=== PATIENT | female | born 1975 | race American Indian/Alaskan Native ===

== ENCOUNTER 2018-12-20 23:18 | Emergency (ER) | payer MEDICAID ==
[2018-12-21 00:58] VITALS: BP 152/101
[2018-12-21] MEDS ORDERED: BANOPHEN PO ONE (01:03)
--- NOTE | 2018-12-21 01:29 | XRay Report ---
PROCEDURE: XR CHEST ROUTINE 2V TECHNIQUE: PA and lateral views of the chest were submitted. HISTORY: KARI COMPARISONS: None FINDINGS: The heart size and mediastinum appear normal. The lungs are clear. Pleural fluid is not seen. Skeleta l structures do not show any acute changes. IMPRESSION: No acute cardiopulmonary process.. This document is electronically signed by Nikita Mayorga MD., December 21 2018 01:27:08 AM ET
[2018-12-21] MEDS ORDERED: PEPCID IV ONE (03:53)
[2018-12-21] MEDS ORDERED: BENADRYL IV ONE (03:53)
[2018-12-21] MEDS ORDERED: DECADRON IV ONE (03:53)
[2018-12-21] MEDS ORDERED: PROVENTIL IH ONE (03:53)
[2018-12-21] MEDS ORDERED: IBUPROFEN PO ONE (03:54)
--- NOTE | 2018-12-21 03:55 | Emergency Department Report ---
ED Peds Dyspnea HPI - General Chief Complaint: Dyspnea/Respdistress Stated Complaint: KARI Time Seen by Provider: 12/21/18 03:42 Source: patient Mode of arrival: Ambulatory Limitations: No Limitations - History of Present Illness Initial Comments: Please of 3-year-old female who presents for itchy throat allergic reaction patient advises that this is a chronic problem for her symptoms usually relieved by Benadryl Benadryl is not working tonight patient states symptoms started about 8:00 this morning at work . symptom does convert of MD Complaint: noisy breathing Onset/Timin -: week(s) Fever: No Temperature Source: subjective, oral Severity scale (0 -10): 2 Consistency: constant Provoking Factors: none known Associated Symptoms: sore throat - Related Data Previous Rx's Medication Instructions Recorded Last Taken Type HYDROcodone/ACETAMINOPHEN [[place] 1 each PO 4XD PRN #20 tablet 03/10/14 Unknown Rx 5/325 Tablet] Naproxen Sodium [Aleve TAB] 220 mg PO Q8H PRN #30 tablet 03/10/14 Unknown Rx HYDROcodone/APAP 5-325 [[place] 1 each PO Q6H PRN #20 tablet 07/27/15 Unknown Rx 5-325 mg TAB] Ibuprofen [Motrin 600 MG tab] 600 mg PO Q6H PRN #100 tablet 07/27/15 Unknown Rx Citalopram [celeXA] 10 mg PO QDAY #30 tablet 07/29/15 Unknown Rx Divalproex ER [DepaKOTE ER] 250 mg PO BID #30 tablet 07/29/15 Unknown Rx Ferrous Sulfate [Feosol 325 MG tab] 325 mg PO BID #60 tablet 07/29/15 Unknown Rx ALBUTEROL NEB's [Proventil 0.083% 2.5 mg IH Q4H PRN #1 nebu 12/21/18 Unknown Rx NEBS] Benzocaine/Mentho [Cepacol X 1 each MM Q2H #4 packet 12/21/18 Unknown Rx Strength] EPINEPHrine [Epipen 2-Lukasz] 0.3 mg IJ PRN PRN #1 auto.injct 12/21/18 Unknown Rx Famotidine [Pepcid] 20 mg PO BID 7 Days #14 tablet 12/21/18 Unknown Rx diphenhydrAMINE [Benadryl CAP] 25 mg PO Q6HR PRN 7 Days #30 12/21/18 Unknown Rx capsule predniSONE [Deltasone] 40 mg PO QDAY 5 Days #10 tab 12/21/18 Unknown Rx Allergies Allergy/AdvReac Type Severity Reaction Status Date / Time No Known Allergies Allergy Verified 07/27/15 10:45 ED Review of Systems ROS: Stated complaint: KARI Other details as noted in HPI Constitutional: denies: chills, fever Eyes: denies: eye pain, eye discharge, vision change ENT: denies: ear pain, throat pain Respiratory: denies: cough, shortness of breath, wheezing Cardiovascular: denies: chest pain, palpitations Endocrine: no symptoms reported Gastrointestinal: denies: abdominal pain, nausea, diarrhea Genitourinary: denies: urgency, dysuria, discharge Musculoskeletal: denies: back pain, joint swelling, arthralgia Skin: denies: rash, lesions Neurological: denies: headache, weakness, paresthesias Psychiatric: denies: anxiety, depression Hematological/Lymphatic: denies: easy bleeding, easy bruising Pediatric Past Medical History - Chronic Health Problems Hx Asthma: No Hx Diabetes: No Hx HIV: No Hx Renal Disease: No Hx Sickle Cell Disease: No Hx Seizures: No Additional medical history: Vocal cord problem ED Peds Dyspnea EXAM - General Limitations: No Limitations - Head Head exam: Positive: atraumatic - Eye Eye Exam: Normal Apperance, PERRL, EOMI, Scleral Icterus - ENT ENT exam: Positive: normal exam - Neck Neck exam: Positive: normal inspection - Respiratory Respiratory Exam: Positive: Chest Wall Non-Tender - GI/Abdominal GI/Abdominal exam: Positive: soft, normal bowel sounds. Negative: distended, tenderness, guarding, rebound, rigid, bruit, hernia - Rectal Rectal exam: Positive: deferred - Exam: Positive: Deferred - Extremities Extremities exam: Positive: normal inspection, full ROM - Back Back exam: normal inspection, full ROM - Neurological Neurological Exam: Positive: Alert, Altered, Oriented X3, Normal Gait - Psychiatric Psychiatric exam: Positive: normal affect - Skin Skin exam: Positive: warm, dry, intact ED Course Vital Signs 12/21/18 00:50 Temperature 98.1 F Pulse Rate 77 Respiratory 20 Rate Blood Pressure 152/101 O2 Sat by Pulse 100 Oximetry ED Medical Decision Making - Radiology Data Radiology results: report reviewed, image reviewed Ordering Physician: ED DOC, Date of Service: 12/21/18 Procedure(s): XR chest routine 2V Accession Number(s): [id number] cc: ED MD ROXANE Fluoro Time In Minutes: PROCEDURE: XR CHEST ROUTINE 2V TECHNIQUE: PA and lateral views of the chest were submitted. HISTORY: KARI COMPARISONS: None FINDINGS: The heart size and mediastinum appear normal. The lungs are clear. Pleural fluid is not seen. Skeletal structures do not show any acute changes. IMPRESSION: No acute cardiopulmonary process.. This document is electronically signed by Ewelina Mayorga MD., December 21 2018 01:27:08 AM ET Transcribed By: RB Dictated By: EWELINA MAYORGA MD Electronically Authenticated By: EWELINA MAYORGA MD Signed Date/Time: 12/21/18128 DD/ 2 TD/TT: 12/21/18122 - Medical Decision Making Symptoms improved with medications given in ed there is no throat pain no throat swelling or wheezing no stridor plan DC home with prescription for prednisone and Benadryl and Reglan pt given instruction on procedure for EpiPen injection pt will follow up with pcp in 2-3 days pt verbalized agreement and understanding of same. Critical care attestation.: If time is entered above; I have spent that time in minutes in the direct care of this critically ill patient, excluding procedure time. ED Disposition Clinical Impression: Allergic reaction Qualifiers: Encounter type: initial encounter Qualified Code(s): T78.40XA - Allergy, unspecified, initial encounter Disposition: DC-01 TO HOME OR SELFCARE Is pt being admited?: No Does the pt Need Aspirin: No Condition: Stable Instructions: Food Allergy (ED), Allergies (ED), Epinephrine (Injection) Prescriptions: diphenhydrAMINE [Benadryl CAP] 25 mg PO Q6HR PRN 7 Days #30 capsule PRN Reason: allergies Benzocaine/Mentho [Cepacol X Strength] 1 each MM Q2H #4 packet predniSONE [Deltasone] 40 mg PO QDAY 5 Days #10 tab EPINEPHrine [Epipen 2-Lukasz] 0.3 mg IJ PRN PRN #1 auto.injct PRN Reason: severe allergic reaction Famotidine [Pepcid] 20 mg PO BID 7 Days #14 tablet ALBUTEROL NEB's [Proventil 0.083% NEBS] 2.5 mg IH Q4H PRN #1 nebu PRN Reason: shotness of breath wheezing Referrals: ANUM LEDBETTER MD [Primary Care Provider] - 3-5 Days Forms: Work/School Release Form(ED) Time of Disposition: 06:01
== END 2018-12-21 06:05 | disposition home or self-care (01) ==
LOC: ED 23:18
DX: T78.40XA Allergy, unspecified, initial encounter (principal); J02.9 Acute pharyngitis, unspecified; X58.XXXA Exposure to other specified factors, initial encounter
CPT/HCPCS: 71046; 94640; 96374; 96375; 99283; J1100; J1200; Q0163